=== PATIENT | male | born 1965 | race Caucasian/White ===

== ENCOUNTER → 2020-07-04 | Outpatient (CLI) | payer BC ==
--- NOTE | 2020-07-04 15:24 | Diagnostic Imaging Report ---
PROCEDURE: US Scrotum. TECHNIQUE: Multiple Real-time grayscale images were obtained over the scrotum in various projections bilaterally. INDICATION: Left scrotal pain. FINDINGS: The testicular parenchyma appears normal bilaterally. No testicular mass. There is no evidence for torsion or orchitis. There are small epididymal head cysts bilaterally measuring 7 mm maximally. No abnormal color flow to the epididymides. There are tiny simple hydroceles bilaterally and there is a patent left-sided varicocele. IMPRESSION: No evidence for epididymal orchitis. Benign subcentimeter epididymal head cyst. Small left varicocele. Tiny simple hydroceles. Dictated by: Dictated on workstation # [id number]
== END ==
LOC: RAD 14:41
PROVIDERS: ATTEND Nurse Practitioner Family
DX: N50.3 Cyst of epididymis (principal); N43.3 Hydrocele, unspecified; I86.1 Scrotal varices
CPT/HCPCS: 76870